=== PATIENT | female | born 1960 | race Hispanic/Latino ===

== ENCOUNTER → 2024-03-21 | Outpatient (CLI) | payer OTHER | END | disposition home or self-care (01) | LOC: RAH 14:35 | PROVIDERS: ATTEND Internal Medicine | DX: I08.2 Rheumatic disorders of both aortic and tricuspid valves (principal); R01.1 Cardiac murmur, unspecified | CPT/HCPCS: 93306 ==

== ENCOUNTER → 2024-07-07 | Outpatient (CLI) | payer OTHER | END | disposition home or self-care (01) | LOC: SHCH 15:34 | PROVIDERS: ATTEND Internal Medicine | DX: R01.1 Cardiac murmur, unspecified (principal) | CPT/HCPCS: 93306 ==

== ENCOUNTER → 2024-07-31 | Outpatient (CLI) | payer OTHER ==
--- NOTE | 2024-07-31 15:38 | HMCSR ---
APPROVED REPORT Laterality: Bilateral Indications r09.89 Doppler Spectral Velocity Analysis PSV / EDVPSV / EDV ECA (R) 105 / cm/sECA (L) 111 / cm/s dICA (R) 82 / 29 cm/sdICA (L) 189 / 62 cm/s Rolf (R) 85 / 30 cm/smICA (L) 65 / 14 cm/s pICA (R) 61 / 18 cm/spICA (L) 84 / 21 cm/s dCCA (R) 67 / 20 cm/sdCCA (L) 72 / 26 cm/s mCCA (R) 65 / 19 cm/smCCA (L) 74 / 29 cm/s pCCA (R) 66 / 14 cm/spCCA (L) 75 / 24 cm/s Vert (R) 50 / cm/sVert (L) 53 / cm/s Subl. (R) 114 / cm/sSubl. (L) 104 / cm/s ICA/CCA 1.27ICA/CCA 2.52 Technologist Impression Minimal plaque noted in the bilateral carotids, JOCELIN appear patent without hemodynamic significance. Distal LICA velocities of 189cm/s suggestive of 20-49% stenosis. Bilateral vertebral arteries appear antegrade. Conclusion Mild-moderate stenosis of distal left internal carotid artery at less than 50% Conclusion Mild-moderate stenosis of distal left internal carotid artery at less than 50%
== END | disposition home or self-care (01) ==
LOC: SHCH 09:34
PROVIDERS: ATTEND Internal Medicine
DX: R09.89 Other specified symptoms and signs involving the circulatory and respiratory systems (principal)
CPT/HCPCS: 93880